=== PATIENT | female | born 1950 | race Asian ===

== ENCOUNTER → 2019-02-18 | Outpatient (CLI) | payer OTHER ==
[~2019-02-18] MED LIST: ACTOS 45 MG45 M1 PO; ACTOS15 MG; CITALOPRAM HBR40 MG PO; GLUCOPHAGE1000 MG PO; GLYBURIDE 5 MG T5 M1 PO; IBUPROFEN 400400 M2 PO; METFORMIN HCL500 MG; PRILOSEC40 MG PO; TRAMADOL 50 MG50 MG PO; ZOCOR80 MG PO
== END ==
LOC: RAD 09:44
DX: R05 Cough (principal)

== ENCOUNTER → 2019-06-04 | Outpatient (CLI) | payer OTHER | LOC: RAD 10:46 | DX: Z12.31 Encounter for screening mammogram for malignant neoplasm of breast (principal) ==

== ENCOUNTER 2020-06-15 10:24 | Inpatient (IN) | payer OTHER ==
[~2020-06-15] VITALS: Ht 152.4 cm; Wt 72.6 kg
--- NOTE | ~2020-06-15 | O ---
[facility] [place] [address] OPERATIVE REPORT Name: SOLOMON BAUMAN V Room #: 439-P [facility] IN M.R.#: [id number] Admission: 06/15/20 Attend Phys: Constantino Pagan MD Discharge: Date of : 46 Report #: [id number] THIS REPORT FOR: cc: Logan Potts,Aren Dumont DO ~ CC: Constantino Potts DATE OF SERVICE: 06/16/2020 PREOPERATIVE DIAGNOSIS: Right shoulder 4-part proximal humerus fracture. POSTOPERATIVE DIAGNOSIS: Right shoulder 4-part proximal humerus fracture. TITLE OF OPERATION: Right shoulder reverse shoulder arthroplasty. SURGEON: Aren Mcdaniel DO ANESTHESIA: General with supplemental regional interscalene block. ANTIBIOTICS: 600 mg clindamycin. ORTHOPEDIC IMPLANTS: 1. Arthrex Univers reverse humeral stem, size 7. 2. Arthrex 24 mm neutral baseplate. 3. Arthrex 34 mm glenosphere, +4 mm lateralized. 4. Arthrex 6 mm humeral spacer. 5. Arthrex 3 mm polyethylene insert. INDICATIONS: The patient is a pleasant 69-year-old female who suffered a ground level fall on 06/15/2020. She presented through the [place] Emergency Department with complaints of right shoulder pain. Radiographs revealed a displaced 4-part proximal humerus fracture. We discussed treatment options including the risks, benefits, and alternatives to surgery. The patient and the daughter demonstrated understanding and wished to proceed with recommended surgery. Surgical consent was obtained, and the patient was scheduled for surgery. OPERATIVE TECHNIQUE: The patient was met in the preoperative holding area and again the risks, benefits and alternatives to surgical intervention were reviewed with the patient. She again demonstrated understanding and wished to proceed with surgery. Surgical consent was checked for correctness. The operative extremity was then initialed after verifying correct surgical site with the patient. [address] [address] OPERATIVE REPORT Name: SOLOMON BAUMAN V Room #: 439-[facility] IN ..#: [id number] Admission: 06/15/20 Attend Phys: Constantino Pagan MD Discharge: Date of : 46 Report #: [id number] DESCRIPTION OF PROCEDURE: The patient was then taken back to the operative suite and placed on the operating table in supine position. She was then administered a general anesthetic by the Department of Anesthesiology. She was then given 600 mg clindamycin preoperatively. A time-out protocol was performed to verify the correct surgical site and procedure. All team members were in agreement. The patient was then placed into the modified beach chair position and the right upper extremity was sterilely prepped and draped in the usual fashion. Surgery began by making standard deltopectoral skin incision utilizing a 10 blade scalpel. The Bovie electrocautery was used to control hemostasis. Dissection was carried down through the deltopectoral interval to expose the clavipectoral fascia. There was a large fracture hematoma noted. A self-retaining retractor was placed within the deltopectoral interval. The fracture site was identified and debrided of provisional hematoma. It was noted to be a comminuted greater tuberosity fracture fragments as well as a fracture of the humeral head and lesser tuberosity. The lesser tuberosity piece was gently excised as well as the humeral head. The greater tuberosity was left within the wound. There was significant comminution noted to the proximal humerus with poor cortical bone quality. Next, the glenoid was then exposed and any remaining labral tissue as well as the long head of the biceps was excised utilizing Bovie electrocautery. A guide pin was then drilled into the center of the glenoid and a 24 mm baseplate was chosen. The glenoid was then reamed appropriately. A 25 mm tap was then used to tap for center screw. The glenoid was then thoroughly lavaged with pulsatile lavage. A 24 mm baseplate with 25 mm central screw was then placed. Superior and inferior locking screws were then placed in standard fashion. These measured size 20 mm and 28 mm respectively. The 36 mm glenosphere was then gently impacted into place and a central screw was then placed, securing fixation of the glenosphere to the glenoid baseplate. Next, attention was turned to the humeral side. The humerus was broached up to 7 mm in appropriate version. There was significant proximal humeral bone loss and therefore, it was decided to cement the humeral stem. A size 7 mm humeral stem was then cemented into place with correct version. The prosthesis was held until the cement was dry. Next, trial implants were used to achieve appropriate stability. Then, the final implants were then impacted into place and the shoulder was then reduced. The shoulder was then thoroughly lavaged with normal saline utilizing the pulsatile lavage. 500 mg of vancomycin powder was then sprinkled deep into the wound. The deltopectoral interval was closed with a running #2 FiberWire suture. The subcuticular tissues and skin were then closed with a combination of Vicryl and subcuticular Monocryl. Mastisol and Steri-Strips were applied. The patient was then placed into an arm sling in neutral rotation. She was then awakened from general anesthesia and transferred to the postoperative gurney in stable condition. [address] [address] OPERATIVE REPORT Name: SOLOMON BAUMAN V Room #: 439-P [facility] IN [facility].#: [id number] Admission: 06/15/20 Attend Phys: Constantino Pagan MD Discharge: Date of : 46 Report #: [id number] COMPLICATIONS: None. SPECIMENS SENT TO PATHOLOGY: None. CONDITION: Stable. DISPOSITION: To the postanesthesia care unit and back to the medical surgical floor. By: [id number] Aren Mcdaniel DO /nt
[2020-06-15 10:29] VITALS: BP 133/67
[2020-06-15 16:20] VITALS: BP 141/62
[2020-06-15 16:40] LABS: APTT 27.1 Seconds (24.5-32.8); INR 1.2; PROTIME 11.8 Seconds (9.3-11.4)
[2020-06-15 17:52] VITALS: BP 115/72
[2020-06-15 17:59] LABS: ABSOLUTE NEUTROPHILS 9.7 thou/uL (1.4-8.2); BASOPHILS 0.3 % (0.0-2.0); HEMATOCRIT 34.7 % (37.0-47.0); HEMOGLOBIN 11.3 gm/dL (12.0-15.0); LYMPHOCYTES 6.7 % (24.0-44.0); MCH 28.2 pg (26.0-34.0); MCHC 32.5 g/dL (28.0-37.0); MCV 86.8 fL (80.0-100.0); MONOCYTES 7.9 % (1.0-8.0); PLATELET COUNT 201 thou/uL (150-400); POLYS 85.1 % (36.0-66.0); RDW 13.6 % (10.5-14.5); WBC 11.4 thou/uL (4.0-11.0)
[2020-06-15 18:09] LABS: CALCIUM 8.9 mg/dL (8.5-10.1); CREATININE 1.1 mg/dL (0.6-1.0)
--- NOTE | 2020-06-15 18:26 | NUR ---
PT ARRIVED ON UNIT AT 1800. ASSIST XS 3 FROM GURNEY TO BED PT HAS SLING TO RIGHT ARM. PT DOES NOT WANT ANY REG DINNER STATES WILL MAYBE EAT LATER. IV ACSESS TO LEFT HAND AND IS ROOM AIR PATIENT. REPORT FROM ER STATES THAT PATIENT FELL OFF TREADMILL ANS HAS ABRASIONS TO GREYSON KNEES AND JHA HAS FX OF RIGHT SHOULDER. PT DOES NOT WANT SKIN ASSESSMENT OR ADMIT PROCESS AT THIS TIME. V.S 98.4 18 82 132/72 O2 SAT = 100% WEIGHT= 160 HEIGHT = 5'0''.PT IS DIABETIC. ORTHO WAS CONSULTED FROM ER.
[2020-06-15 20:45] VITALS: BP 132/72
--- NOTE | 2020-06-15 23:00 | NUR ---
ADMISSION COMPLETED. PT ALERT AND ORIENTED X 4. SLING TO R ARM. PT IS IN ALOT OF PAIN WITH EVERY SLIGHT MOVT. GETTING PRN MORPHINE. AFEBRILE.WALKS TO THE BATHROOM. VOIDING OKAY.SCDS IN PLACE. NPO AFTER MIDNOC. PLAN FOR SURGERY TODAY.
[2020-06-16 06:01] LABS: HEMATOCRIT 31.8 % (37.0-47.0); HEMOGLOBIN 10.4 gm/dL (12.0-15.0); MCH 28.5 pg (26.0-34.0); MCHC 32.8 g/dL (28.0-37.0); MCV 87.1 fL (80.0-100.0); RBC 3.65 mil/uL (4.20-5.00); RDW 13.7 % (10.5-14.5); WBC 7.5 thou/uL (4.0-11.0)
[2020-06-16 06:35] LABS: CALCIUM 8.9 mg/dL (8.5-10.1); CREATININE 1.1 mg/dL (0.6-1.0); POTASSIUM 4.5 mmol/L (3.5-5.1)
--- NOTE | 2020-06-16 07:42 | EKG ---
[facility] [place] [address] ELECTROCARDIOGRAM REPORT Name: SOLOMON BAUMAN V Room #: 439-P ADM IN M.R.#: [id number] Admission: 06/15/20 Attend Phys: Constantino Pagan MD Discharge: Date of : 46 Report #: [id number] THIS REPORT FOR: cc: Logan Potts Steven F. DO Santiago, Patrick MD [facility] THIS REPORT FOR: //name// [facility] ED Test Date: 2020-06-15 Test Time: 16:33:40 Pat Name: SOLOMON BAUMAN Department: Room: 439 Gender: F Guardian Family Member: tobias : 1950 Requested By: Sheila Arthur Order Number: [id number] MD: Juan Ceballos Measurements Intervals [place] Rate: 77 P: 57 ME: 142 QRS: 21 QRSD: 80 T: 48 QT: 401 QTc: 454 Interpretive Statements Sinus rhythm Compared to ECG 10/17/2002 07:01:54 No significant changes Electronically Signed On 06-16-2020 7:42:27 CDT by Juan Ceballos [email or web address] <ELECTRONICALLY SIGNED> By: Juan Ceballos MD, FAC 06/16/20 0742 1633 1633 Juan Ceballos MD, [facility] /EPI
[2020-06-16 08:00] VITALS: BP 119/69
--- NOTE | 2020-06-16 10:29 | NUR ---
PT RESTING IN BED PT ALERT XS 4. PT GIVEN PRN PAIN MED. IV PUSH HAS LEFT HAND IV ACSESS SL DR JACOBSON GAVE ORDER FOR IV FLUIDS. PT GIVEN ICE PACK AND FACE RAG TO CLEAN FACE. HAS SLING TO RIGHT ARM. PT IS SOFT SPOKEN PLEASANT AND COOPERATIVE WITH CARE.
[2020-06-16 16:50] VITALS: BP 107/62
--- NOTE | 2020-06-16 18:23 | NUR ---
PT RETURNED TO UNIT FROM SURGERY 16:50 DAUGHTER AT BEDSIDE PT SLEEPING NO PAIN V.S.98.6 20 79 107/62 O2 SAT= 100% RA PT W/O PAIN OR RESP DISTRESS.
[2020-06-16 20:48] VITALS: BP 114/73
--- NOTE | 2020-06-17 03:27 | NUR ---
S/P R SHOULDER ORIF. AQUACEL DRSG IN PLACE. ICE PACK APPLIED FOR SORENESS AROUND NECK AND UPPER BACK.PT IS GENERALLLY SORE IN THE WHOLE CHEST AREA FROM THE FALL PRIOR TO ADMISSION. R HAND WITH NEURO VASCULAR CHECKS INTACT.PT VOIDING OKAY PER BATHROOM. SLING IN PLACE TO R HAND.MORPHINE IVP GIVEN FOR PAIN. PT ALSO HAS IV FLUIDS RUNNING. SHE IS DRINKING SOME.SCDS IN PLACE. 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 WILL CONTINUE WITH POC TILL EOS.
[2020-06-17 04:35] VITALS: BP 112/61
[2020-06-17 05:20] LABS: HEMATOCRIT 31.8 % (37.0-47.0); HEMOGLOBIN 10.5 gm/dL (12.0-15.0)
[2020-06-17 06:01] LABS: CALCIUM 8.5 mg/dL (8.5-10.1); CREATININE 0.8 mg/dL (0.6-1.0); POTASSIUM 4.9 mmol/L (3.5-5.1)
[2020-06-17 08:10] VITALS: BP 116/71
[2020-06-17 14:54] VITALS: BP 116/71
[2020-06-17 16:00] VITALS: BP 128/66
--- NOTE | 2020-06-17 20:04 | NUR ---
PT IS A&OX4, UP WITH ASSIST, WORKING ON PAIN CONTROL. PT IS CHANGED TO REGULAR DIET AND CONTINENT. BLOOD SUGARS CONTROLLED. PT HAD CHEST PAIN AND RESULT IN CHEST X-RAY. PT WAS STARTED ON A LIDOCAINE PATCH, PLACED ON CHEST. PER DR. FERREIRA PAIN MEDS, NARCO AND MORPHINE IS TO BE GIVEN TOGETHER. PT PAIN LEVEL IS NOW RATING AT AN EIGHT OUT OF TEN. IV PATENT WITH NO REDNESS OR EDEMA, SALINE LOCK. FALL PRECAUTIONS IN PLACE, WILL CONTINUE TO MONITOR.
[2020-06-17 21:14] VITALS: BP 114/58
[2020-06-18 00:04] VITALS: BP 137/70
--- NOTE | 2020-06-18 00:20 | NUR ---
PT CALLED AT ABOUT MIDNIGHT. ROOFER ASSISTANT CAME IN TO HELP PATIENT TO THE TOILET. PT CONFUSED AND ASKING FOR FAMILY. VITALS TAKEN AND ARE STABLE. SPOT BLOOD SUGAR WAS 131.PT HAD TAKEN OFF THE R HAND SLING. NEURO VASCULAR CHECK TO R HAND IS INTACT. R SHOULDER WITH AQUACEL INTACT. SMALL/OLD DRAINAGE NOTED. PT STATES SHE HAD NOT SLEPT AT ALL SINCE SHE GOT IN BED. PT STATES PAIN HAS BEEN OUT OF CONTROL. PATIENT WAS GIVEN PAIN MEDS AT ABOUT 2055, THIS NURSE STAYED WITH PATIENT , SHE WAS IN A HAPPY MOOD AND SHE WENT TO SLEEP.PT WILL BE GIVEN NORCO FOR PAIN IN ABT 30 MINS. PT IS ALERT AT THIS TIME.CELL PHONE AND CALL LIGHT WITHIN REACH...WILL LEAVE LIGHTS ON SO PATIENT CAN FIND ALL NEEDED ITEMS...WILL ALSO FREQUENTLY CHECK PATIENT.
[2020-06-18 16:12] VITALS: BP 128/68
--- NOTE | 2020-06-18 18:15 | NUR ---
PT ASSESSED AT START OF SHIFT. HAVING PAIN 10/10 EVEN AFTER IV MORPHINE. SURGEON NOTIFIED AND HYDORCODONE INCREASED TO TWO TABS. FIRST DOSE OF 10MG GIVEN W/ VERY GOOD PAIN RELIEF PER PT BUT SECOND DOSE NOT RELIEVING PAIN BEFORE. AWAITING CALL BACK FROM DR. FERREIRA FOR ORDERS
[2020-06-18 19:26] VITALS: BP 111/63
[2020-06-19 04:15] VITALS: BP 130/74
--- NOTE | 2020-06-19 05:14 | NUR ---
CARE ASSUMED 1900. PT ORIENTED X 4. PT C/O RIGHT SHOULDER PAIN. DENIES NUMBNESS OR TINGLING IN THAT ARM. VITALS STABLE. DENIES CHEST PAIN, NAUSEA VOMITING OR SOB. OTHER ASSESSMENTS DOCUMENTED. WILL CONTINUE TO MONITOR AND FOLLOW POC. OTHERWISE NO EVENTS OVERNIGHT.
[2020-06-19 07:42] VITALS: BP 150/72
[2020-06-19] MEDS ORDERED: OXYCODONE-APAP1 TAB PO (12:15)
[2020-06-19 12:53] VITALS: BP 150/72
--- NOTE | 2020-06-19 14:22 | NUR ---
PT HAD PAIN 10/10 THIS AM, MEDS GIVEN, PAIN DOWN TO 5 AFTER A FEW HOURS AND PO OXYCONTIN GIVEN PER MD, WORKED WITH OT AND PT, PT SEEMS TO BE TRYING HARDER TODAY IN AN EFFORT TO GO HOME AND NOT HAVE TO GO TO REHAB, PT'S DAUGHTER IN ROOM, REVIEWED THE PLAN FOR DISCHARGE, WAITING FOR HOME HEALTH ACCEPTANCE FOR PT/OT AND WILL GIVE DC INSTRUCTIONS TO BOTH PT AND DAUGHTER, IV REMOVED
--- NOTE | 2020-06-19 14:57 | NUR ---
PT ADMITTED RELATED TO R HUMERUS FRACTURE. CM REVIEWED CHART AND SPOKE WITH CARE TEAM. CM CALLED AND SPOKE WITH PT AND HER DTR JUDITH OVER THE PHONE THIS DAY. PT APPEARED TO BE A&O X4. CM ROLE INTRODUCED. PT AND DTR INDICATED THAT PT RESIDES IN AN APARTMENT ALONE WITH NO STEPS TO ENTER AND NONE SHE USES INSIDE. 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 PT'S DTR INDICATED THAT SHE WOULD BE GOING TO STAY AT HOME HOME [place] TODAY. THEY WERE RECEPTIVE TO HH SERVICES. CM SENT REDERR[facility] TO [facility]. AWAITING RESPONSE. PT'S PCP IS DR. MILAN QUINTEROS. [place] [address] [facility] [address]. PHONIX PROVIDED WITH ADDRESS.
[2020-06-19 15:41] VITALS: BP 150/72
--- NOTE | 2020-06-19 16:33 | NUR ---
PT LEFT WITH DAUGHTER, AND TOOK ALL BELONGINGS, PT HAS DC PACKET INCLUDING PRESCRIPTION
== END 2020-06-19 16:25 | disposition home health service (06) | DRG 483 ==
LOC: ER 10:24 → EROBS 16:30 → 4S 16:30
PROVIDERS: Orthopaedic Surgery; Physician Assistant; ADMIT Hospitalist; ATTEND Hospitalist
PROC: 0RRJ00Z Replacement of Right Shoulder Joint with Reverse Ball and Socket Synthetic Substitute, Open Approach (ICD-10-PCS; principal; 2020-06-16)
DX: S42.291A Other displaced fracture of upper end of right humerus, initial encounter for closed fracture (principal); N17.0 Acute kidney failure with tubular necrosis; E78.5 Hyperlipidemia, unspecified; K21.9 Gastro-esophageal reflux disease without esophagitis; M81.0 Age-related osteoporosis without current pathological fracture; F32.9 Major depressive disorder, single episode, unspecified; F41.9 Anxiety disorder, unspecified; R07.89 Other chest pain; E53.8 Deficiency of other specified B group vitamins; Z20.828 Contact with and (suspected) exposure to other viral communicable diseases; E11.9 Type 2 diabetes mellitus without complications; Z79.84 Long term (current) use of oral hypoglycemic drugs; Z79.899 Other long term (current) drug therapy; Z88.5 Allergy status to narcotic agent; Z88.0 Allergy status to penicillin; Z79.891 Long term (current) use of opiate analgesic; W18.39XA Other fall on same level, initial encounter; Y93.A1 Activity, exercise machines primarily for cardiorespiratory conditioning; Y92.038 Other place in apartment as the place of occurrence of the external cause; Y99.8 Other external cause status
CPT/HCPCS: 10195; 50010; 50101; 50386; 50417; 51057; 51130; 51225; 51226; 52256; 53078; 54118; 56525; 56530; 57095; 57103; 58307; 58308; 58309; 58310; 58311; 58312; 58313; 58314; 58315; 62110; 62900; 64043; 65060; 70005

== ENCOUNTER 2020-06-28 18:05 | Emergency (ER) | payer OTHER ==
[~2020-06-28] VITALS: Ht 152.4 cm; Wt 72.6 kg
[~2020-06-28 18:05] MED LIST changes: +OXYCODONE-APAP1 TAB PO
[2020-06-28 21:07] VITALS: BP 118/71
== END 2020-06-28 21:08 | disposition left against medical advice (07) ==
LOC: ER 18:05
DX: Z53.21 Procedure and treatment not carried out due to patient leaving prior to being seen by health care provider (principal)

== ENCOUNTER 2021-02-05 14:24 | Emergency (ER) | payer OTHER ==
[~2021-02-05] VITALS: Ht 167.6 cm; Wt 67.1 kg
[~2021-02-05 14:24] MED LIST changes: +COLACE 100 MG100 MG PO; +CYCLOBENZAPRINE5 MG PO; +FEROSUL325 M1 PO; +GLIPIZIDE ER10 MG PO; +HYDROCODON-ACE1 EAC7 PO; +HYDROCODONE; +LIDOPATCH1 EACH TRANSDERM; +LIPITOR 20 MG T20 M1 PO; +OSTERA TABLET1 EAC1 PO; +VOLTAREN GEL 1100 G1 TOP
[2021-02-05 16:16] LABS: ABSOLUTE NEUTROPHILS 5.7 thou/uL (1.4-8.2); BASOPHILS 0.9 % (0.0-2.0); EOSINOPHILS 0.8 % (0.0-3.0); HEMATOCRIT 40.1 % (37.0-47.0); HEMOGLOBIN 13.1 gm/dL (12.0-15.0); LYMPHOCYTES 19.5 % (24.0-44.0); MCH 27.6 pg (26.0-34.0); MCHC 32.7 g/dL (28.0-37.0); MCV 84.6 fL (80.0-100.0); MONOCYTES 8.3 % (1.0-8.0); PLATELET COUNT 235 thou/uL (150-400); POLYS 70.5 % (36.0-66.0); RBC 4.73 mil/uL (4.20-5.00); RDW 13.6 % (10.5-14.5)
[2021-02-05 16:23] LABS: CALCIUM 9.8 mg/dL (8.5-10.1); CREATININE 0.9 mg/dL (0.6-1.0); POTASSIUM 3.9 mmol/L (3.5-5.1)
[2021-02-05 16:40] LABS: ALBUMIN 4.2 g/dL (3.4-5.0); DIRECT BILIRUBIN 0.2 mg/dL (<0.1-0.2); TOTAL BILIRUBIN 0.7 mg/dL (0.2-1.0); TOTAL PROTEIN 8.6 g/dL (6.4-8.2)
--- NOTE | 2021-02-05 17:39 | EKG ---
[place] [address] [facility] [place] [address] ELECTROCARDIOGRAM REPORT Name: MERNASOL[address] Lane Room #: [facility]#: [id number] Admission: 02/05/21 Attend Phys: Discharge: Date of : 46 Report #: [id number] [facility] ED Test Date: 2021-02-05 Test Time: 15:35:54 Pat Name: SOLOMON BAUMAN Department: Room: Gender: F [employer] Consultant: MOISES : 1950 Requested By: Jared Kowalski Order Number: [id number] MD: Avinash Bianchi Measurements Intervals [place] Rate: 83 P: 73 AK: 145 QRS: 43 QRSD: 84 T: 52 QT: 372 QTc: 437 Interpretive Statements Sinus rhythm Normal tracing Compared to ECG 07/11/2020 11:26:25 No significant changes Electronically Signed On 02-05-2021 17:38:58 CDT by Avinash Bianchi [email or web address] <ELECTRONICALLY SIGNED> By: Avinash Bianchi MD, [facility] 02/05/21 1738 1535 1535 Avinash Bianchi MD, FACC /EPI
[2021-02-05] MEDS ORDERED: ONDANSETRON HCL4 M2 PO (18:02)
[2021-02-05] MEDS ORDERED: ULTRAM 50MG TAB50 MG PO (18:02)
[2021-02-05 18:44] LABS: URINE BILIRUBIN NEGATIVE (Negative); URINE BLOOD NEGATIVE (Negative); URINE CLARITY CLEAR; URINE COLOR YELLOW; URINE GLUCOSE-RANDOM* NEGATIVE (Negative); URINE KETONES 1+ (Negative); URINE LEUKOCYTES-REFLEX NEGATIVE (Negative); URINE NITRITE-REFLEX NEGATIVE (Negative); URINE PROTEIN (DIPSTICK) NEGATIVE (Negative); URINE SPECIFIC GRAVITY <= 1.005 (1.005-1.035)
[2021-02-05 19:13] VITALS: BP 145/52
== END 2021-02-05 19:13 | disposition home or self-care (01) ==
LOC: ER 14:24
PROVIDERS: Nurse Practitioner
DX: R10.84 Generalized abdominal pain (principal); R11.10 Vomiting, unspecified; E11.9 Type 2 diabetes mellitus without complications; E78.5 Hyperlipidemia, unspecified; Z88.5 Allergy status to narcotic agent; Z88.0 Allergy status to penicillin; Z79.899 Other long term (current) drug therapy

== ENCOUNTER → 2021-02-09 | Outpatient (CLI) | payer OTHER ==
[~2021-02-09] MED LIST changes: +ONDANSETRON HCL4 M2 PO; +ULTRAM 50MG TAB50 MG PO
== END ==
LOC: MRI 10:22
PROVIDERS: ATTEND Nurse Practitioner
DX: R16.0 Hepatomegaly, not elsewhere classified (principal); K76.9 Liver disease, unspecified

== ENCOUNTER → 2021-02-20 | Outpatient (CLI) | payer OTHER ==
[~2021-02-20] MED LIST changes: +ACTOS 45 MG45 M2 PO; +ASA81BEC PO; +BUPROPION XL300 MG PO; +TESSALON PERLE100 M1 PO
[2021-02-20 11:23] LABS: APTT 25.9 Seconds (24.5-32.8); PROTIME 10.9 Seconds (10.5-12.1)
== END ==
LOC: LAB 09:48
PROVIDERS: Radiology Diagnostic Radiology; ATTEND Nurse Practitioner
DX: Z01.812 Encounter for preprocedural laboratory examination (principal); R16.0 Hepatomegaly, not elsewhere classified

== ENCOUNTER → 2021-02-26 | Outpatient (CLI) | payer OTHER ==
[2021-02-20 10:48] VITALS: BP 145/56
[2021-02-20 11:23] LABS: APTT 25.9 Seconds (24.5-32.8); PROTIME 10.9 Seconds (10.5-12.1)
[~2021-02-26] VITALS: Ht 152.4 cm; Wt 65.9 kg
[2021-02-26 10:10] LABS: APTT 26.4 Seconds (24.5-32.8); INR 1.01
[2021-02-26 10:12] VITALS: BP 143/62
[2021-02-26 10:50] VITALS: BP 150/69
[2021-02-26 10:55] VITALS: BP 146/66
[2021-02-26 11:00] VITALS: BP 140/53
[2021-02-26 11:05] VITALS: BP 135/52
[2021-02-26 11:59] VITALS: BP 134/67
--- NOTE | 2021-02-28 19:07 | PATH ---
[facility] [address] [place] [address] PATHOLOGY RPT PROCEDURE Name: SLOOMON BAUMAN V Room #: REG COSMO Ramirez.#: [id number] Admission: 02/26/21 Date of : 46 Discharge: Report #: [id number] Path Case #: [id number] [facility] Accession Number: [id number] . 01 Material submitted: . liver - FOCAL LIVER BIOPSY RIGHT. Modifiers: right . 01 Clinician provided ICD-10: [id number] . 01 Clinical history: . US/GUIDED LIVER BIOPSY/FOCAL LIVER MASS BIOPSY . 02 Diagnosis: Liver, right liver mass, needle core biopsy: - POSITIVE FOR MALIGNANCY; MODERATELY DIFFERENTIATED ADENOCARCINOMA, SEE COMMENT. (IUV:chance; 02/28/2021) QMS 02/28/2021 1151 Local . 02 Comment: Examination shows a gland forming malignancy with eosinophilic cytoplasm and occasional pleomorphic nuclei. Multiple properly controlled immunohistochemical stains are performed on block A1 and are interpreted as follows: . CK7 - Strongly reactive CK20 - Weak reactivity present within most malignant cells CDX2 - Nonreactive MALISSA-3 - 2-3+ nuclear reactivity present within most tumor cells ER - Nonreactive CK19 - Strong membranous reactivity present PAX8 - Nonreactive TTF - Nonreactive within the tumor cells Glypican 3 - Nonreactive HepPar - Nonreactive within the tumor cells . 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 . A door to door sales representative focus was co-reviewed by Dr. Gayathri Alvarez, who concurs with my diagnosis. Findings of this case are left on a voice mail message for Ms. Makh LUCINA White, at 11:31 a.m. on 02/28/2021. (IUV:chance; 02/28/2021) [address] [address] PATHOLOGY RPT PROCEDURE Name: SOLOMON BAUMAN V Room #: REG COSMO Gross#: [id number] Admission: 02/26/21 Date of : 46 Discharge: Report #: [id number] Path Case #: [id number] . . . 02 Electronically signed: . Elsie Jacobs MD, Pathologist NPI- [id number] . 01 Gross description: . The specimen is received in formalin, labeled "Edithrapu, Solomon, focal liver biopsy" received as 2 soft tristan tissue cores measuring up to 1.8 x less than 0.1cm entirely submitted in A1. ([facility]; 02/26/2021) MAGED/MAGED 02/28/2021 1140 Local . 02 Pathologist provided ICD-10: C22.9 . 02 CPT . 247915, E11980, K52857 Specimen Comment: A courtesy copy of this report has been sent to [phone] Specimen Comment: [phone] Specimen Comment: Report sent to ,DR LIU / DR QUINTEROS Performed at: [address], [place] [id number] MD Geo Taylor MD Phone: [phone] Performed at: [address] [id number] MD Elsie Jacobs MD Phone: [phone]
== END | disposition home or self-care (01) ==
LOC: RAD 02-20 08:19 → ULTRA 02-20 09:48 → LAB 02-20 09:48 → ULTRA 09:47
PROVIDERS: Radiology Diagnostic Radiology; ATTEND Nurse Practitioner
DX: C22.9 Malignant neoplasm of liver, not specified as primary or secondary (principal); R10.9 Unspecified abdominal pain; G89.29 Other chronic pain; E11.9 Type 2 diabetes mellitus without complications; E78.00 Pure hypercholesterolemia, unspecified; K21.9 Gastro-esophageal reflux disease without esophagitis; Z98.890 Other specified postprocedural states; Z79.899 Other long term (current) drug therapy; Z88.0 Allergy status to penicillin; Z88.8 Allergy status to other drugs, medicaments and biological substances

== ENCOUNTER → 2021-03-09 | Outpatient (CLI) | payer OTHER | LOC: BC 09:39 → CAT 14:15 → BC 15:32 | PROVIDERS: ATTEND Nurse Practitioner | DX: C80.1 Malignant (primary) neoplasm, unspecified (principal); R92.1 Mammographic calcification found on diagnostic imaging of breast; I51.7 Cardiomegaly; R07.2 Precordial pain; R06.02 Shortness of breath; Z96.611 Presence of right artificial shoulder joint ==